=== PATIENT | male | born 1955 | race Two or more races ===

== ENCOUNTER 2024-05-23 06:46 | Emergency (ER) | payer MEDICARE, SELFPAY ==
--- NOTE | 2024-05-23 | XR_ITS ---
Examination: MRI lumbar spine without contrast Date and time of exam: May 23, 2024 at 1405 hours INDICATIONS: Back pain radiating to the legs, stabbing pain with numbness in the right leg beginning 2 days ago Technique: Multiple MRI axial and sagittal sections lumbar spine. Sagittal T2-weighted images, TR 3500, TE 118 T1 weighted transverse sections, TR 688 T8.5, T2-weighted sagittal sections T1 weighted sagittal sections TR 621, TE 30 T2 axial sections, TR 4, 190, TE 84. 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 upper lumbar levoscoliosis 8 degrees Adequate alignment lumbar vertebral bodies on the lateral view Diffuse lumbar disc desiccation Mild to moderate disc narrowing L5-S1 No spondylolisthesis Adequate marrow signal lumbar vertebral bodies L5-S1 5 mm central right paracentral disc bulge displacing the right S1 nerve root and producing mild bilateral L5 ganglionic compression L4-L5 6 mm central lumbar disc bulge L3-L4 4 mm central lumbar disc bulge L2-L3 5 mm right foraminal disc bulge sagittal image 5 producing mild right L2 ganglionic compression L1-L2 2 mm right subarticular paracentral disc bulge IMPRESSION: L5-S1 5 mm central right paracentral disc bulge displacing the right S1 nerve root and producing mild bilateral L5 ganglionic compression L4-L5 6 mm central lumbar disc bulge L3-L4 4 mm central lumbar disc bulge L2-L3 5 mm right foraminal disc bulge mild right L2 ganglionic compression
[2024-05-23 06:48] VITALS: BMI 32.1
[2024-05-23 06:54] VITALS: BP 155/89; PULSE 75; RESP 17; TEMP 36.6; O2SAT 97
--- NOTE | 2024-05-23 07:03 | XR_ITS ---
Examination: CT abdomen and pelvis without contrast. Coronal 3-D reconstructions. Sagittal 2-D reconstructions. Date and time of exam:May 23, 2024 0802 hours INDICATIONS: Right inguinal right groin pain today COMPARISON: December 20, 2019 CTDI: vol (mGy): 10.1 DLP: (mGycm): 591 Technique: Axial images of the abdomen have been obtained, 3 mm slice thickness Intravenous contrast material has not been administered. Low dose protocols were performed. One or more of the following dose reduction techniques were used; automated exposure control, adjustment of the mA and/or KV according to patient size, use of iterative reconstruction technique. Findings: No focal liver or splenic lesions No gallstones No pancreatic or adrenal mass Minimal perinephric stranding Aorta normal size No bowel obstruction Normal appendix No diverticulitis AP prostate dimension 5.5 cm Fat-containing left inguinal hernia Suspicious for mild hydroceles Moderate disc narrowing L5-S1 IMPRESSION: Minimal perinephric stranding Normal appendix Significant prostatomegaly Fat-containing left inguinal hernia Suspicious for mild hydroceles, consider testicular sonography follow-up
--- NOTE | 2024-05-23 07:09 | PD.EDRME ---
Rapid Medical Screening Exam RME Arrival date/time: 05/23/24 06:46 69 yr old male presents to ER with complaints of right inguinal pain Chief Complaint: General Adult/Misc Complain Time Seen by Provider: 05/23/24 06:50 Vital signs: Vital Signs Temperature 97.8 F 05/23/24 06:54 Pulse Rate 75 05/23/24 06:54 Respiratory Rate 17 05/23/24 06:54 Blood Pressure 155/89 H 05/23/24 06:54 Pulse Oximetry (%) 97 05/23/24 06:54 Oxygen Delivery Method Room Air 05/23/24 06:54
[2024-05-23 07:39] LABS: Collection Type, Urine Clean Catch
[2024-05-23 07:42] LABS: Basophils % (Auto) 1 % (0-2.5); Eosinophils # (Auto) 0.2 Thou/mm3 (0.0-0.5); Eosinophils % (Auto) 3 % (0-10); Hematocrit 45.1 % (41.0-53.0); Hemoglobin 15.3 g/dL (13.5-16.0); Immature Granulocytes % (Auto) 0 % (0-0); Immature Granulocytes Auto 0.02 Thou/mm3 (0.00-0.00); Lymphocytes # (Auto) 1.9 Thou/mm3 (1.0-4.8); Lymphocytes % (Auto) 32 % (10-50); Mean Corpuscular HGB Conc 33.9 g/dl (31.0-37.0); Mean Corpuscular Volume 88 fL (80-100); Monocytes # (Auto) 0.4 Thou/mm3 (0.0-0.8); Monocytes % (Auto) 6 % (0-12); Neutrophils # (Auto) 3.5 Thou/mm3 (1.8-7.7); Neutrophils % (Auto) 58 % (37-80); Nucleated Red Blood Cell % 0 /100 WBC (0); Platelet Count 214 Thou/mm3 (140-440); White Blood Count 6.1 Thou/mm3 (3.8-10.6)
[2024-05-23 07:51] LABS: Bilirubin,Urine Negative (Negative); Blood,Urine Negative (Negative); Clarity,Urine Clear (Clear/Hazy); Color,Urine Lt-Yellow (Lt Yel-Yel); Culture Indicated,Urine Not Indicated; Glucose, Urine Negative (Negative); Ketones,Urine Trace (Negative); Leukocyte Esterase,Urine Negative (Negative); Nitrite,Urine Negative (Negative); PH,Urine 6.5 (5.0-7.0); Protein,Urine Trace (Neg - Trace); RBC,Urine 2 /hpf (0-3); Specific Gravity,Urine 1.032 (1.001-1.035); Squamous Epithelial Cell,Urine < 1 /hpf (0-5); Urobilinogen,Urine Negative mg/dL (0.0-1.0); WBC,Urine < 1 /hpf (0-5)
[2024-05-23 08:00] LABS: Alanine Aminotransferase 33 U/L (10-49); Albumin, Serum 4.9 gm/dL (3.4-4.8); Albumin/Globulin Ratio 2.2 (1.2-2.2); Alkaline Phosphatase 71 U/L (46-116); Anion Gap 7 (7-16); Aspartate Amino Transferase 28 U/L (0-34); BUN/Creatinine Ratio 19 Ratio (12-20); Bilirubin,Total 0.4 mg/dL (0.3-1.2); Blood Urea Nitrogen 15 mg/dL (9-23); Calcium 9.7 mg/dL (8.3-10.6); Calcium (Corrected) 9.7 mg/dL (8.5-10.1); Chloride 105 mMol/L (98-107); Creatinine (Component) 0.8 mg/dL (0.6-1.3); Estimated Creatinine Clearance 103.9 mL/min (>60); Globulin 2.2 gm/dL (2.3-3.5); Glucose 133 mg/dL (74-106); Lipase 30 U/L (12-53); Osmolality,Calculated 280 (275-295); Potassium 4.3 mMol/L (3.4-5.1); Sodium 139 mMol/L (136-145); Total Protein 7.1 gm/dL (5.7-8.2); eGFR > 60 See Note
[2024-05-23 08:30] VITALS: BP 137/74; PULSE 64; RESP 19; TEMP 36.8; O2SAT 95
--- NOTE | 2024-05-23 08:56 | PC.NURSE ---
PATIENT AWAKE RESTING QUIETLY. STATES HE THINKS HE HAS A HERNIA. IS HAVING RT GROIN PAIN WHICH INCREASES WITH ACTIVITY AND LESSENS IF LAYING DOWN. DENIES DIFFICULTY VOIDING. HAS BEEN HAVING THE PAIN FOR A FEW DAYS AND WORSENED YESTERDAY WERE HE CANT GET UP. STATES THAT DR OTERO HAD STATED HE WAS DEVELOPING A HERNIA.
--- NOTE | 2024-05-23 10:42 | EDNOTE_ITS ---
ED General RME/HPI General Chief complaint: General Adult/Misc Complain Stated complaint: RIGHT GROIN HERNIA PAIN Time Seen by Provider: 05/23/24 06:50 Arrival date/time: 05/23/24 06:46 RME / HPI RME / HPI narrative: 05/23/24 06:46 69-year-old male patient with past medical history of diabetes mellitus, presented to the ED due to right groin pain that has been going on for 7 years however it is worsening for the past 2 months. Patient reported that the pain radiated to the back to the lumbar area, and feeling numbness of his right lower extremity. On questioning patient denied any constipation, urine tract symptoms, denied any bulging or swelling on his groin. He reported that he feels some bulge in his testicular area. Denied any fever or chills. Related Data Home Medications ?Medication ?Instructions ?Recorded ?Confirmed metformin 1,000 mg tablet 1,000 mg PO DAILY #0 tabs 12/30/16 11/05/23 (Glucophage) baclofen 10 mg tablet 10 mg PO QDAY PRN Muscle Pain 04/14/19 11/05/23 finasteride 5 mg tablet 5 mg PO QDAY 04/14/19 11/05/23 atorvastatin 10 mg tablet 10 mg PO DAILY 11/05/23 11/05/23 doxazosin 4 mg tablet 4 mg PO DAILY 11/05/23 11/05/23 fexofenadine 180 mg tablet 180 mg PO QDAY 11/05/23 11/05/23 naproxen 500 mg tablet 500 mg PO BID PRN Pain 11/05/23 11/05/23 Allergies Allergy/AdvReac Type Severity Reaction Status Date / Time No Known Allergies Allergy Verified 05/23/24 06:47 ED Exam Narrative Physical exam: GEN: AOx3, able to speak full sentences HEENT: NC/AC, PERRLA, oral mucosa moist, neck supple CVS: RRR, S1-S2 present, no murmurs appreciated RESP: CTAB GI: soft,non distended, non tender, NBS MSK: able to move all 4 limbs, no lower extremity edema : No testicular swelling, mild discomfort on palpation of the right side of the testicular area. SKIN: warm and dry [employer] [employer] [facility]: CN II-XII and Sensation grossly intact. Course Quality Measures none Orders Category Date Time Status MRI Screening NOW Care 05/23/24 12:[address] abdomen pelvis wo con Stat Exams 05/23/24 07:03 Completed MR lumbar spine wo con Stat Exams 05/23/24 Completed CBC Stat Lab 05/23/24 07:29 Completed Comprehensive Metabolic Panel Stat Lab 05/23/24 07:29 Completed Lipase Stat Lab 05/23/24 07:29 Completed UA, C/S IF [Urinalysis, C/S if Indicated] Stat Lab 05/23/24 07:22 Completed HYDROcodone*/APAP 5/325 [[place] 5/325] Med 05/23/24 12:12 Discontinued 1 tab PO X1 ONE Vital Signs Vital signs: Vital Signs Temperature 97.8 F 05/23/24 06:54 Pulse Rate 75 05/23/24 06:54 Respiratory Rate 17 05/23/24 06:54 Blood Pressure 155/89 H 05/23/24 06:54 Pulse Oximetry (%) 97 05/23/24 06:54 Oxygen Delivery Method Room Air 05/23/24 06:54 [facility] Patient data External records reviewed:: [facility] previous records Clinical information provided by:: patient and spouse Social determinants that could affect healthcare access:: none Patient has the following chronic illnesses:: DM How is presenting disease/condition affected by chronic disease/condition?: e xacerbated by Evaluation data The following diagnostics were reviewed and interpreted by me:: lab results, radiology exam(s) and EKG tracing(s) Lab and/or radiology exams considered but not ordered:: None Interpretation Summary: Radicular neuropathy Degenerative Lumbar disease Rt Hydrocele Medications Medications considered but not ordered:: none Medication administrations:: Medication Administration History Discontinued Medications Hydrocodone Bitart/Acetaminophen (Hydrocodone/Apap 5/325 Tablet) 1 tab PO X1 ONE Stop: 05/23/24 12:13 Last Admin: 05/23/24 13:00 Dose: 1 tab Documented By: SP as above Consultations Consultation(s) initiated? (list below): No Diagnosis Differential Diagnosis ED Complaint MDM: Hydrocele incarcerated hernia, radicular neuropathic Most likely diagnosis given after review of the tests above:: Radicular neuropathy Admission Indicated Admission indicated?: not indicated Explain why admission is indicated or not indicated:: Patient can follow-up in outpatient settings, no neurological signs were noticed, patient was able to walk around the room with no difficulty or assistance, no weakness bilaterally, all reflexes bilaterally were intact, and sensation was intact. Admission Request Was there a request for admission?: No Disposition Plan Disposition Plan: Discharge Discharge Attestation Discharge Attestation: The patient and all family members were given an opportunity to ask questions and understood the discharge instructions. Discharge instructions specifically effects, indications for sooner follow up or return to the emergency department, and the expected course of current diagnosis. Patient condition: Stable Medical Decision Making MDM Narrative MDM Narrative: And evaluation patient was found to have blood pressure of 155/89, pulse of 75, respiratory 17, O2 saturation 97, temperature of 97.8. He was complaining of right groin pain radiate to the back with numbness of his lower extremity of the right side. Patient mentions that he has also some back pain that includes when he bends over. He denies any neurological symptoms denied any fecal or urine incontinence or retention. Abdominal CT scan was done to rule out any incarcerated hernia however it was negative for any incarcerated hernia. It was positive for Fat-containing left-sided hernia however the patient was not complaining of any symptoms. CT scan showed fat containing left inguinal hernia, prostatomegaly, suspicious of mild hydrocele. On physical exam there was no signs of testicular swelling or incarceration or tenderness. That made us believe that the patient may have radiating pain from the back with a reasonable to complete MRI which showed the following L5-S1 5 mm central right paracentral disc bulge displacing the right S1 nerve root and producing mild bilateral L5 ganglionic compression L4-L5 6 mm central lumbar disc bulge L3-L4 4 mm central lumbar disc bulge L2-L3 5 mm right foraminal disc bulge mild right L2 ganglionic compression Patient will be discharged to follow-up his primary care physician in outpatient settings. Copy of the imaging reports will be given to the patient. Patient can follow-up in outpatient settings, no neurological signs were noticed, patient was able to walk around the room with no difficulty or assistance, no weakness bilaterally, all reflexes bilaterally were intact, and sensation was intact. JMK> this patient was evaluated fully by myself with the resident and has at least a chronic problem with right inguinal pain but no bowel obstruction and no obvious etiology raising the concern for possible mononeuropathy. But patient has a newer symptomatology with low back pain with some radiation to the buttocks and leg with the MRI with the results above but no acute neurological intervention is required and the patient was advised to follow with a doctor get referred accordingly. Differential Diagnosis Differential Diagnosis: Hydrocele incarcerated hernia, radicular neuropathic Lab Data 05/23/24 07:29 05/23/24 07:29 Labs: Lab Results 05/23/24 05/23/24 Range/Units 07:22 07:29 WBC 6.1 (3.8-10.6) Thou/mm3 RBC 5.10 (4.50-5.90) Miln/mm3 Hgb 15.3 (13.5-16.0) g/dL Hct 45.1 (41.0-53.0) % MCV 88 (80-100) fL MCH 30.0 (25.0-35.0) pg MCHC 33.9 (31.0-37.0) g/dl RDW Std Deviation 43.0 (35.1-43.9) fL Plt Count 214 (140-440) Thou/mm3 Neut % (Auto) 58 (37-80) % Lymph % (Auto) 32 (10-50) % [place] % (Auto) 6 (0-12) % Eos % (Auto) 3 (0-10) % Baso % (Auto) 1 (0-2.5) % Neut # (Auto) 3.5 (1.8-7.7) Thou/mm3 Lymph # (Auto) 1.9 (1.0-4.8) Thou/mm3 [place] # (Auto) 0.4 (0.0-0.8) Thou/mm3 Eos # (Auto) 0.2 (0.0-0.5) Thou/mm3 Baso # (Auto) 0.0 (0.0-0.2) Thou/mm3 Immature Gran # (Auto) 0.02 H (0.00-0.00) Thou/mm3 Absolute Nucleated RBC 0.00 (0.00-0.00) Thou/mm3 Immature Gran % 0 (0-0) % Nucleated RBC % 0 (0) /100 WBC Sodium 139 (136-145) mMol/L Potassium 4.3 (3.4-5.1) mMol/L Chloride 105 (98-107) mMol/L Carbon Dioxide 27.0 (20.0-31.0) mMol/L Anion Gap 7 (7-16) BUN 15 (9-23) mg/dL Creatinine 0.8 (0.6-1.3) mg/dL Estim Creat Clear Calc 103.9 (>60) mL/min eGFR > 60 (60 - ) See Note BUN/Creatinine Ratio 19 (12-20) Ratio Glucose 133 H (74-106) mg/dL Calculated Osmolality 280 (275-295) Calcium 9.7 (8.3-10.6) mg/dL Corrected Calcium 9.7 (8.5-10.1) mg/dL Total Bilirubin 0.4 (0.3-1.2) mg/dL AST 28 (0-34) U/L ALT 33 (10-49) U/L Alkaline Phosphatase 71 (46-116) U/L Total Protein 7.1 (5.7-8.2) gm/dL Albumin 4.9 H (3.4-4.8) gm/dL Globulin 2.2 L (2.3-3.5) gm/dL Albumin/Globulin Ratio 2.2 (1.2-2.2) Lipase 30 (12-53) U/L Ur Collection Type Clean Catch Urine Color Lt-Yellow (Lt Yel-Yel) Urine Clarity Clear (Clear/Hazy) Urine pH 6.5 (5.0-7.0) Ur Specific [place] 1.032 (1.001-1.035) Urine Protein Trace (Neg - Trace) Urine Glucose (UA) Negative (Negative) Urine Ketones Trace (Negative) Urine Blood Negative (Negative) Urine Nitrite Negative (Negative) Urine Bilirubin Negative (Negative) Urine Urobilinogen (Auto) Negative (0.0-1.0) mg/dL Ur Leukocyte Esterase Negative (Negative) Urine RBC 2 (0-3) /hpf Urine WBC < 1 (0-5) /hpf Ur Squamous Epith Cells < 1 (0-5) /hpf Urine Bacteria None (None) Ur Culture Indicated? Not Indicated Discharge Plan Plan Patient Disposition: HOME (Self Care) Health Concerns: Follow-up with your primary care physician regarding your testicular pain Follow-up with your primary care physician regarding your radiculopathy, I will give you a copy of your MRI and CT scan reports Avoid strain or carrying heavy objects at this time Avoid prolonged with walking or standing For the pain use Tylenol 350 mg [id number] maximum 6 pills/day. Prescriptions/Referrals Prescriptions/Med Rec: No Action baclofen 10 mg tablet 10 mg PO QDAY PRN (Reason: Muscle Pain) finasteride 5 mg tablet 5 mg PO QDAY metformin [Glucophage] 1,000 MG tablet 1,000 mg PO DAILY Qty: 0 atorvastatin 10 mg tablet 10 mg PO DAILY Patient Comments: RUBEN ROJAS TABLETA TODOS LOS D FOR 90 DAYS fexofenadine 180 mg Tablet 180 mg PO QDAY doxazosin 4 mg tablet 4 mg PO DAILY Patient Comments: TOME BOB TABLETA TODOS LOS D naproxen 500 mg tablet 500 mg PO BID PRN (Reason: Pain) Referrals: Anibal Miller MD [Primary Care Provider] - In 1 week Problem List Clinical Impression: Neuropathy, lumbosacral (radicular), Hydrocele, left, Pain of right inguinal ring Patient/Caregiver Discharge Instructions Print Language: French Stand Alone Forms: Elly Award Info., Patient Portal Info Letter MD Attestation Attestation I, Bharathi Perez MD, have reviewed the history, exam, and assessment of the patient. I have evaluated the patient independently and agree with the plan of care documented by [ ]. All diagnostic studies were reviewed and discussed. I confirm the diagnosis as documented by the Resident. I was present during the Medical Decision Making for this patient. The patient's plan of care was created between myself and the Resident and consistent with our discussion of the patient's case.
[2024-05-23 11:25] VITALS: BP 148/86; PULSE 60; RESP 19; TEMP 36.7; O2SAT 96
[2024-05-23 13:00] VITALS: BP 146/80; PULSE 58; RESP 18; O2SAT 97
[2024-05-23] MEDS: HYDROcodone/APAP 5/325 TABLET 1 TAB PO (13:00)
[2024-05-23 15:00] VITALS: BP 135/76; PULSE 61; RESP 18; TEMP 36.8; O2SAT 97
== END 2024-05-23 16:30 | disposition home or self-care (01) ==
PROVIDERS: Nurse Practitioner Primary Care; Emergency Provider Emergency Medicine; PCP Family Medicine
DX: E11.40 Type 2 diabetes mellitus with diabetic neuropathy, unspecified (principal); N43.3 Hydrocele, unspecified; K40.90 Unilateral inguinal hernia, without obstruction or gangrene, not specified as recurrent; N40.0 Benign prostatic hyperplasia without lower urinary tract symptoms; M51.16 Intervertebral disc disorders with radiculopathy, lumbar region; M51.17 Intervertebral disc disorders with radiculopathy, lumbosacral region; G95.29 Other cord compression; Z79.84 Long term (current) use of oral hypoglycemic drugs
CPT/HCPCS: 36415; 72148; 74176; 80053; 81001; 83690; 85025; 99284; A9270

== ENCOUNTER → 2025-07-03 | Outpatient (CLI) | payer MEDICARE, SELFPAY ==
--- NOTE | 2025-07-03 08:15 | XR_ITS ---
Examination: MRI left hip without intravenous contrast. Date and time of exam: July 03, 2025, 0834 hours INDICATIONS: Left hip pain and weakness stiffness 7 months Technique: Multiple MRI images of the left hip have been obtained T1 weighted coronal sections, TR 500, TE 12 Proton density coronal fat saturated images, TR 3000, TE 71 T2-weighted coronal images, 5850, TE 104 T1-weighted axial images, TR 521, TE 12 T2-weighted axial fat suppressed images, TR 5730, TE 103. Findings: Moderate narrowing left and right hip joint No occult fracture or bone contusion marrow edema or avascular necrosis Small [id number] images do not demonstrate labral tear No significant prostatomegaly No free fluid in the pelvis Contracted urinary bladder IMPRESSION: Moderate narrowing right and left hip joints No focal fracture, bone contusion, marrow edema or avascular necrosis No labral tear
== END | disposition home or self-care (01) ==
PROVIDERS: PCP Family Medicine; Referring Provider Family Medicine; Visit Provider Family Medicine
DX: M25.852 Other specified joint disorders, left hip (principal); M25.851 Other specified joint disorders, right hip
CPT/HCPCS: 73721